=== PATIENT | female | born 1990 | race Caucasian/White ===

== ENCOUNTER → 2018-05-28 | Outpatient (CLI) | payer OTHER ==
[~2018-05-28] MED LIST: SINCALIDE IV STA; SODIUM CHLORIDE 0.9% IV STA
--- NOTE | 2018-05-28 10:06 | DIAGNOSTIC IMAGING REPORT ---
HEPATOBILIARY EF IMAGING CLINICAL HISTORY: 28 years-old Female with GASTRIC DISCOMFORT RADIATING INTO RT SHOULDER. Acute epigastric abdominal pain TECHNIQUE: Following the intravenous administration of 5.2 mCi of technetium-99m Choletec, sequential abdominal images were obtained. In order to evaluate the contractile response of the gallbladder, 1.62 mcg of Kinevac was administered by slow intravenous infusion over 30 min starting approximately 60 min after the administration of the radiopharmaceutical. Sequential imaging was continued for 45 min after the start of the Kinevac infusion. COMPARISON: None available FINDINGS: There is prompt, uniform accumulation of the tracer by the liver. There is normal filling of the intrahepatic ducts, common bile duct and gallbladder and normal excretion of the tracer into the duodenum. There is adequate contraction of the gallbladder. The calculated gallbladder ejection fraction is 100% (normal >40%). There is no significant enterogastric reflux. IMPRESSION: 1. Normal contractile response of the gallbladder to Kinevac infusion. 2. Normal biliary imaging study. The above report was generated using voice recognition software. It may contain grammatical, syntax or spelling errors. Electronically signed by: Franko Quick M.D. 05/28/2018 10:05 AM Dictated Date/Time: 05/28/2018 10:03 AM
== END | disposition home or self-care (01) ==
LOC: C.NUCL 07:50
PROVIDERS: ATTEND Internal Medicine Gastroenterology
DX: K21.9 Gastro-esophageal reflux disease without esophagitis (principal); Z88.2 Allergy status to sulfonamides; Z88.8 Allergy status to other drugs, medicaments and biological substances